=== PATIENT | female | born 2000 | race Two or more races ===

== ENCOUNTER 2023-06-07 12:00 | Emergency (ER) | payer MEDICAID ==
[~2023-06-07] VITALS: Ht 162.6 cm; Wt 56.2 kg
[2023-06-07 12:20] VITALS: TEMP 98
[2023-06-07 13:00] LABS: BASOPHILS % (AUTO) 0.4 % (0.0-2.0); EOSINOPHILS % (AUTO) 0.4 % (0.0-6.0); HEMATOCRIT 33 % (33-45); HEMOGLOBIN 10.7 g/dL (11.5-14.8); LYMPHOCYTES # (AUTO) 1.7 K/uL (0.8-4.8); LYMPHOCYTES % (AUTO) 23.9 % (20.0-44.0); MEAN CORPUSCULAR HEMOGLOBIN 26 PG (26.0-33.0); MEAN CORPUSCULAR HGB CONC 33 g/dl (31.0-36.0); MEAN CORPUSCULAR VOLUME 78 fL (82-100); MONOCYTES # (AUTO) 0.3 K/uL (0.1-1.30); MONOCYTES % (AUTO) 3.6 % (2.0-12.0); NEUTROPHILS # (AUTO) 5.1 K/uL (1.8-8.9); NEUTROPHILS % (AUTO) 71.7 % (43.0-81.0); PLATELET COUNT (AUTO) 181 K/uL (150-450); RED BLOOD CELL COUNT(AUTO) 4.19 MIL/uL (4.0-5.2); RED CELL DISTRIBUTION WIDTH 15.8 % (11.5-15.0); WHITE BLOOD COUNT (AUTO) 7.2 K/uL (4.3-11.0)
[2023-06-07 13:12] LABS: CREATININE 0.4 mg/dL (0.6-1.3)
[2023-06-07 13:16] LABS: APPEARANCE,URINE CLOUDY (CLEAR); BILIRUBIN,URINE NEGATIVE (NEGATIVE); BLOOD, URINE 3+ Ery/uL (NEGATIVE); COLOR,URINE DARK YELLOW (YELLOW); KETONES,URINE 1+ mg/dL (NEGATIVE); LEUKOCYTE ESTERASE ,URINE 2+ (NEGATIVE); NITRITE, URINE NEGATIVE (NEGATIVE); PH,URINE 7.5 (5.0-8.0); PROTEIN,URINE NEGATIVE (NEGATIVE); UGLUCOSE NEGATIVE (NEGATIVE); UROBILINOGEN,URINE 0.2 EU/dL (0.2)
[2023-06-07 13:17] LABS: ADD URINE CULTURE YES; BACTERIA,URINE Few /HPF (None Seen); SQUAMOUS EPITHELIAL CELL,UR Rare /HPF (None Seen); WBC,URINE 21-50 /HPF (0-3)
[2023-06-07] MEDS ORDERED: ONDANSETRON HCL/PF 4 MG/2 ML VIAL ONE (13:28)
[2023-06-07] MEDS ORDERED: ONDANSETRON HCL/PF - ER 4 MG/2 ML VIAL IV ONE (13:30)
[2023-06-07] MEDS ORDERED: IV NS 0.9% 1,000 ML BAG IV ONE (13:30)
[2023-06-07] MEDS ORDERED: ONDA4TAB11 PO (14:37)
[2023-06-07] MEDS ORDERED: NITR100C6 PO (14:37)
[2023-06-07 14:51] VITALS: BP 116/64; O2SAT 97
== END 2023-06-07 14:51 | disposition home or self-care (01) ==
LOC: ER 12:34
DX: O23.41 Unspecified infection of urinary tract in pregnancy, first trimester (principal); N39.0 Urinary tract infection, site not specified; O46.91 Antepartum hemorrhage, unspecified, first trimester; R11.2 Nausea with vomiting, unspecified; R10.2 Pelvic and perineal pain; Z3A.13 13 weeks gestation of pregnancy
CPT/HCPCS: 99285; 96374; 76805; 96361; 85025; 80048; 87086; 81001; 36415; 84702; J2405 ×2; J7030; A6403